=== PATIENT | male | born 1960 | race Caucasian/White ===

== ENCOUNTER 2022-06-26 07:38 | Day surgery (SDC) | payer OTHER ==
[2022-06-23 12:18] VITALS: BMI 26.6
[2022-06-26] MEDS ORDERED: PROPOFOL 40 ML ONE (10:01)
[2022-06-26] MEDS ORDERED: SUCCINYLCHOLINE CHLORIDE 200 MG/10 ML SYRINGE ONE (10:01)
[2022-06-26] MEDS ORDERED: MIDAZOLAM HCL 2 MG/2 ML SINGLE DOSE VIAL ONE (10:01)
[2022-06-26] MEDS ORDERED: LIDOCAINE HCL 2% JELLY 10 ML CARTRIDGE ONE ×2 (10:02→10:09)
[2022-06-26] MEDS ORDERED: LIDOCAINE HCL/PF 2% SDV 5ML VIAL ONE (10:09)
[2022-06-26] MEDS ORDERED: BUPIVACAINE 0.25% /EPI 1:200,000 10 ML VIAL INF ONE (10:29)
[2022-06-26] MEDS ORDERED: ONDANSETRON 4 MG/2 ML VIAL IVPUSH PRN (11:01)
[2022-06-26] MEDS ORDERED: oxyCODONE HCL 5 MG TABLET PO PRN ×2 (11:01)
[2022-06-26 11:20] VITALS: TEMP 97.8
[2022-06-26] MEDS ORDERED: oxyCODONE HCL 5 MG TABLET ONE (11:47)
[2022-06-26 12:04] VITALS: RESP 18
[2022-06-26 12:21] VITALS: BP 118/66; PULSE 67
== END 2022-06-26 12:25 | disposition home or self-care (01) ==
LOC: FASU 07:38
PROVIDERS: ATTEND Orthopaedic Surgery
PROC: 0SBC4ZZ Excision of Right Knee Joint, Percutaneous Endoscopic Approach (ICD-10-PCS; 2022-06-26)
PROC: 0SBC4ZZ Excision of Right Knee Joint, Percutaneous Endoscopic Approach (ICD-10-PCS; 2022-06-26)
PROC: 0SBC4ZZ Excision of Right Knee Joint, Percutaneous Endoscopic Approach (ICD-10-PCS; principal; 2022-06-26 09:00)
DX: S83.281A Other tear of lateral meniscus, current injury, right knee, initial encounter (principal); S83.241A Other tear of medial meniscus, current injury, right knee, initial encounter; S83.8X1A Sprain of other specified parts of right knee, initial encounter; M65.861 Other synovitis and tenosynovitis, right lower leg; X58.XXXA Exposure to other specified factors, initial encounter; Y92.9 Unspecified place or not applicable; Y93.9 Activity, unspecified